=== PATIENT | female | born 1950 | race Caucasian/White ===

== ENCOUNTER 2016-11-25 11:24 | Outpatient (CLI) | payer MEDICARE ==
[2016-11-25 12:16] LABS: #Basophils 0.1 thou/uL (0.0-0.2); #Eosinphils 0.1 thou/uL (0.0-0.7); #Lymphocytes 1.6 thou/uL (1.20-3.40); #Monocytes 0.3 thou/uL (0.11-0.59); #Neutrophils 1.9 thou/uL (1.40-6.50); %Basophils 2.6 % (0.0-1.0); %Eosinophils 3.4 % (0.0-10.0); %Lymphocytes 39.1 % (21.0-51.0); %Monocytes 7.1 % (0.0-10.0); %Neutrophils 47.8 % (42.0-75.0); Hemoglobin 12.8 g/dL (12.0-16.0); Mean Corpuscular HGB CONC 34.2 g/dL (32.0-36.0); Mean Corpuscular Hemoglobin 30.8 pg (27.0-31.0); Mean Corpuscular Volume 90.1 fl (81.0-99.0); Platelet Count 260 thou/uL (130-400); RBC Distribution Width 13.1 % (11.5-14.5); Red Blood Cell (RBC) Count 4.15 mill/uL (4.20-5.40)
[2016-11-25 12:27] LABS: Hemoglobin A1c 5.5 % (4.0-6.0)
[2016-11-25 12:29] LABS: ALT (SGPT) 16 U/L (8-55); AST (SGOT) 26 U/L (5-34); Albumin 3.9 g/dL (3.4-4.8); Alkaline Phosphatase 64 U/L (40-150); Anion Gap 13 mmol/L (10-20); BUN (Urea Nitrogen) 18 mg/dL (9.8-20.1); Bilirubin, Total 0.3 mg/dL (0.2-1.2); Calc. Creatinine Clearance 0 mL/min (70-130); Calcium 9.5 mg/dL (7.8-10.44); Carbon Dioxide 28 mmol/L (23-31); Chloride 103 mmol/L (98-107); Estimated GFR-MDRD 60; Globulin 3.1 g/dL (2.4-3.5); Glucose 98 mg/dL (80-115); Potassium 4.2 mmol/L (3.5-5.1); Sodium 140 mmol/L (136-145)
[2016-11-25 12:44] LABS: Free T4 (Free Thyroxine) 0.88 ng/dL (0.70-1.48)
[2016-11-25 17:18] LABS: Iron 62 ug/dL (50-170)
[2016-11-25 17:48] LABS: Ferritin 26.91 ng/mL (10-291)
== END 2016-11-25 11:25 | disposition home or self-care (01) ==
LOC: MADLABBHPM 11:24
PROVIDERS: ATTEND Family Medicine
DX: M79.7 Fibromyalgia (principal)
CPT/HCPCS: 36415; 80053; 82728; 83036; 83540; 84439; 84443; 85025

== ENCOUNTER 2017-02-09 12:02 | Emergency (ER) | payer MEDICARE ==
[~2017-02-09 12:02] MED LIST: Sodium Chloride 0.9% 1,000 ML BAG ONE
[2017-02-09] MEDS ORDERED: Ondansetron HCl/PF 4 MG/2 ML Vial ONE (12:49)
[2017-02-09] MEDS ORDERED: Metoclopramide HCl 10 MG/2 ML VIAL ONE (12:49)
[2017-02-09] MEDS ORDERED: Ketorolac Tromethamine 30 MG/ML VIAL ONE (12:49)
[2017-02-09 12:51] LABS: #Basophils 0.2 thou/uL (0.0-0.2); #Lymphocytes 1.7 thou/uL (1.20-3.40); #Monocytes 0.9 thou/uL (0.11-0.59); #Neutrophils 13.1 thou/uL (1.40-6.50); %Lymphocytes 10.9 % (21.0-51.0); %Monocytes 5.9 % (0.0-10.0); %Neutrophils 82.2 % (42.0-75.0); Hemoglobin 13.8 g/dL (12.0-16.0); Mean Corpuscular HGB CONC 32.9 g/dL (32.0-36.0); Mean Corpuscular Hemoglobin 29.2 pg (27.0-31.0); Mean Corpuscular Volume 88.8 fl (81.0-99.0); Mean Platelet Volume 7.7 fL (7.4-10.4); Platelet Count 448 thou/uL (130-400); RBC Distribution Width 11.9 % (11.5-14.5); Red Blood Cell (RBC) Count 4.74 mill/uL (4.20-5.40)
[2017-02-09 13:06] LABS: ALT (SGPT) 16 U/L (8-55); AST (SGOT) 20 U/L (5-34); Albumin 3.8 g/dL (3.4-4.8); Alkaline Phosphatase 92 U/L (40-150); Anion Gap 19 mmol/L (10-20); BUN (Urea Nitrogen) 31 mg/dL (9.8-20.1); Bilirubin, Total 0.6 mg/dL (0.2-1.2); Calc. Creatinine Clearance 0 mL/min (70-130); Calcium 10.2 mg/dL (7.8-10.44); Carbon Dioxide 26 mmol/L (23-31); Chloride 96 mmol/L (98-107); Estimated GFR-MDRD 63; Globulin 4.1 g/dL (2.4-3.5); Glucose 135 mg/dL (80-115); Lipase 22 U/L (8-78); Potassium 3.4 mmol/L (3.5-5.1); Protein, Total 7.9 g/dL (6.0-8.3); Sodium 138 mmol/L (136-145)
[2017-02-09] MEDS ORDERED: Iopamidol 370 76% 100 ML VIAL ONE (13:37)
--- NOTE | 2017-02-09 14:28 | RAD ---
AP VIEW OF CHEST: Date: 02/09/17 HISTORY: Abdominal pain, nausea, and vomiting. FINDINGS: Comparison made to previous exam from 04/08/10. AP view of chest demonstrates blunting of the costophrenic angle on the left with pleural scar, unch anged since the previous exam. There also appears to be some possible left apical pleural thickening or a left-sided pleural effusion. There is some volume loss in the left hemithorax. The right lung is well aerated. IMPRESSION: Left pleural scar with possible left-sided pleural effusion or pleural thickening. Volume loss is se en in the left lung No significant interval change is seen since the previous exam otherwise. POS: [facility]
[2017-02-09 15:38] LABS: Clarity Hazy (Clear)
[2017-02-09 15:39] LABS: Bilirubin Negative (Negative); Blood, Urine Trace (Negative); Glucose, Urine (Dipstick) Negative (Negative); Icto Negative (Negative); Leukocyte Negative (Negative); Nitrite Negative (Negative); Protein, Urine (Dipstick) 100 mg/dL (Neg-Trace)
[2017-02-09 15:45] LABS: Bacteria/HPF Rare-Few HPF (None Seen); Squamous Epithelial 0-3 HPF (0-3); WBC/HPF 0-3 HPF (0-3)
[2017-02-09 15:47] LABS: Other Casts/LPF 0-3 FINELY GRAN LPF (0-3 Hyaline)
--- NOTE | 2017-02-09 16:20 | CT ---
CT CONTRAST ENHANCED IMAGES ABDOMEN AND PELVIS 02/09/17 COMPARISON: Comparison made to previous exam from 11/23/12. HISTORY: Nausea, vomiting, abdominal pain. There is some areas of scarring seen in the left lung base. No evidence of free intraperitoneal air seen. The liver and spleen are unremarkable. Pancreas, gallbladder, adrenal glands and kidneys are unremar kable. Atherosclerotic calcification of the abdominal aorta is seen. A small hiatal hernia is seen. 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 This is predominantly due to extensive atheros clerotic plaque in the origin of the SMA. The inferior mesenteric artery also appears to be occluded . There does appear to be some thickening of the distal small bowel involving the terminal ileum and distal aspect of the ileum. Numerous descending and sigmoid colonic diverticula seen. IMPRESSION: 1. Extensive vascular calcification involving the proximal portion of the superior mesenteric a rtery. There appears to be a filling defect concerning for thrombosis of the SMA. There is some flow seen in some of the distal branches however. 2. Diffuse distal ileal small bowel wall thickening. Small bowel ischemia cannot be excluded. POS: [facility]
[2017-02-09] MEDS ORDERED: Acetaminophen 500 MG TAB ONE (17:25)
[2017-02-09 17:28] LABS: INR-International Normal Ratio 1.3; PTT 34.8 SEC (22.9-36.1)
[2017-02-09 17:41] LABS: CKMB 0.9 ng/mL (0-6.6); Troponin I Less than 0.010 ng/mL (< 0.028)
[2017-02-09 18:07] LABS: Magnesium 1.8 mg/dL (1.6-2.6)
== END 2017-02-09 17:40 | disposition short-term general hospital (02) ==
LOC: MADERS 12:02
DX: K55.9 Vascular disorder of intestine, unspecified (principal); Z79.82 Long term (current) use of aspirin; Z79.899 Other long term (current) drug therapy
CPT/HCPCS: 71010; 74177; 80053; 81001; 82150; 82550; 82553; 83605; 83690; 83735; 83880; 84484; 85025; 85610; 85730; 87086; 93005; 94760; 96361; 96374; 96375; 96376; J1885; J2270; J2405; J2765; J7050

== ENCOUNTER 2017-02-20 17:23 | Inpatient (IN) | payer MEDICARE ==
[2017-02-20 20:48] VITALS: BMI 22.0
[2017-02-20] MEDS ORDERED: Morphine Sulfate 2 MG/ML SYRINGE SLOW IVP PRN ×2 (21:10)
[2017-02-20] MEDS ORDERED: Lorazepam 2 MG/ML VIAL SLOW IVP PRN (21:18)
[2017-02-20] MEDS ORDERED: Acetaminophen 650 MG Suppository PR PRN (21:19)
[2017-02-21 08:40] VITALS: BP 109/58; TEMP 99.3
--- NOTE | 2017-02-21 14:08 | HP ---
ATTENDING/PRIMARY CARE PHYSICIAN: Dr. Janet Torre REASON FOR ADMISSION: Palliative/terminal care at [facility]. HISTORY OF PRESENT ILLNESS: Ms. Theresa Mir is a very pleasant 66-year- old female with history of history of gastric ulcer without hemorrhage or perforation, chronic fibromyalgia,history of ischemia of the small intestine, coronary artery disease, history of tobacco use, quit several years ago. The patient was in her usual state of health when she was reported to have an acute onset of abdominal pain. She was initially seen at [facility] and was subsequently transferred to [facility] for peripheral vascular disease status post prior iliac stenting. 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 [place] [facility] embolectomy and endarterectomy followed by exploratory laparotomy with small bowel resection and washout. Then the patient underwent for a second look exploratory laparotomy with findings of extensively involved ischemic small bowel and therefore, after several discussions with the family and vascular/general surgery consultants, the decision was made to forego further bowel resection and proceed with comfort measures only. The patient was subsequently transferred to [place] per family's request to continue terminal ill care at [facility], to be closer to home. When admitted the patient was comatose. She is on nonrebreather. Her son who was present at the time of admission, who gives further information as an informant. I spoke to the patient's son, Rylan Mir on admission regarding the patient's very poor condition/prognosis. Son confirms patient's DNR/DNI status and the son is comfortable to palliative care/ comfort care in [facility] until her time ends. When evaluated today, patient remains comatose. Staff reports that the patient had eventful overnight course. She remains on nonrebreather as they were unable to wean her off the nonrebreather since admission secondary to desaturations as below 80 with nasal cannula O2 alone. No other new issues reported at this time. PAST MEDICAL HISTORY: 1. Peptic ulcer disease/gastritis. 2. History of H. pylori. 3. History of ischemia of small intestine, Cardiovascular, Dr. Camacho and then GI, Dr. Estevez; 4. History of tobacco use. PAST SURGICAL HISTORY: 1. Hysterectomy with unilateral salpingo-oophorectomy. 2. Right knee arthroscopy. 3. Bilateral arterial iliac stent placement. stents for ischemia of small intestine on 01/08/2013. FAMILY HISTORY: Noncontributory. SOCIAL HISTORY: Previous smoker, no alcohol, no illicit drug use. REVIEW OF SYSTEMS: Unobtainable at this time secondary to current mental status / comatose. Per report, the patient has been having intermittent fever and leakage of postoperative sit, hypoxia, 02 dependent. The patient is n.p.o. with Dubose catheter on. CURRENT MEDICATIONS: 1. Dilaudid IV p.r.n. 2. Ativan IV p.r.n. PHYSICAL EXAMINATION: ADMIITING VITAL SIGNS: Temperature 100.8, pulse 107, respirations 24, O2 sats 100% on nonrebreather, blood pressure 107/59. Current vital signs; temperature 99.3, pulse 103, respirations 22, O2 sats 88 with nonrebreather. Blood pressure 109/58. Weight 136.6. Height 5 feet 6. GENERAL: The patient is unresponsive/comatose. Resting comfortably in bed, no family is present at bedside. HEENT: Normocephalic, atraumatic. Pupils sluggishly reactive to light. CHEST: Mildly tachypneic. LUNGS: Decreased bibasilar sounds. No rales, no crackles, no rhonchi noted. HEART: Mildly tachycardic, normal S1, S2. ABDOMEN: Postop site is covered with clean dressing. Soft, nondistended abdomen, hypoactive bowel sounds. No rebound, no guarding. EXTREMITIES: No edema, no cyanosis. GENITOURINARY: Dubose catheter in place with 100 mL slightly marce urine. . NEURO: Comatose. ASSESSMENT: 1. Acute SMA thrombosis with ischemic colitis. 2. Peripheral vascular disease, status post iliac stenting. 3. Postop acute respiratory failure, now on nonrebreather. 4. Status post exploratory laparotomy with small bowel resection and washout. 5. Status post second look exploratory laparotomy with extensive findings involving ischemic small bowel, untreatable. 6. Postop acute blood loss anemia. 7. Moderate malnutrition secondary to acute illness/injury as evidenced by less than 75% of estimated energy requirements for greater than 7 days (based on hospital records) then mild muscle mass loss. PLAN: The patient is admitted to [facility] for terminal care only. Continue palliative care. Continue comfort measures with morphine and Ativan IV p.r.n.. We will keep Dubose catheter and oxygen as part of the comfort measures. Routine PICC line care. CODE STATUS: DNR/DNI as confirmed by her son, Rylan Mir. Prognosis is very poor. The patient's family as represented by her son, Rylan Mir, is very well aware of the patient's prognosis and clinical condition. I think is imminent within the next 24 hours. EFRAIN
== END 2017-02-21 18:55 | disposition expired | DRG 951 ==
LOC: MADMS 20:04
PROVIDERS: ADMIT Family Medicine; ATTEND Family Medicine
DX: Z51.5 Encounter for palliative care (principal); J96.00 Acute respiratory failure, unspecified whether with hypoxia or hypercapnia; R40.20 Unspecified coma; K55.9 Vascular disorder of intestine, unspecified; E44.0 Moderate protein-calorie malnutrition; Z66 Do not resuscitate; Z90.49 Acquired absence of other specified parts of digestive tract; Z98.890 Other specified postprocedural states; I73.9 Peripheral vascular disease, unspecified; K25.9 Gastric ulcer, unspecified as acute or chronic, without hemorrhage or perforation; Z68.22 Body mass index [BMI] 22.0-22.9, adult; M79.7 Fibromyalgia; I25.10 Atherosclerotic heart disease of native coronary artery without angina pectoris; F17.210 Nicotine dependence, cigarettes, uncomplicated
CPT/HCPCS: A4216; J1642; J2060; J2270